=== PATIENT | male | born 1975 ===

== ENCOUNTER → 2024-03-09 10:46 | Outpatient (REF) | payer OTHER, SELFPAY ==
--- NOTE | 2024-03-09 12:21 | PN.DE ---
Diabetes Education
- -
03/09/2024 Diabetes Education hold over
Patient referred by Dr. Tommy Holden for education. Patient with PMH CABG x 4 in 2020,HLD, paroxysmal afib,GERD, HTN, moderate persistent asthma. New onset type 2 diabetes. A1C 13.3%.
Patient and attended visit.
Patient states his doctor gave him a meter and ordered metformin 500mg once daily but to wait for education to start.
Provided and instructed on 2000 calorie diet using meal plan and CHO counting booklet. Reviewed food label and instructed on portions per meal and portion sizes. Encouraged to weigh and measure food .
Patient to start metformin with dinner tonight then every night at dinner.
Patient was given the Contour Next meter; instructed on steps for testing, lancing device at 2. Good return demonstration. Patient to test BID in pattern provided and email results in one week.
Patient and with many questions, all answered. He would like to pursue CGM, will check with insurance to see what the process is. Will follow and assist.
Encouraged patient to attend diabetes classes in fall, they expressed interest in the evening class.
== END ==
LOC: DES 10:46
PROVIDERS: ATTENDING PHYSICIAN Family Medicine
DX: E11.65 Type 2 diabetes mellitus with hyperglycemia (principal)
CPT/HCPCS: 99078

== ENCOUNTER 2024-09-05 07:59 | Emergency (ER) | payer OTHER, SELFPAY ==
[2024-09-05 08:01] VITALS: BP 155/78
[2024-09-05 08:18] VITALS: BP 147/88
[2024-09-05 08:19] VITALS: BMI 31.2
--- NOTE | 2024-09-05 08:37 | ED.GENMED ---
History of Present Illness
General
Chief Complaint: Dizziness
Time Seen by Provider: 09/05/24 08:37
History of Present Illness
History of Present Illness:
TIME OF INITIAL ENCOUNTER: 8:38 AM
HPI: Patient presents with dizziness. He felt fine when he woke up this morning, but when he got up to walk around he felt dizzy. This worsened when he bent over/change head position. He currently has no significant symptoms at rest sitting in
the stretcher. He does have significant comorbidities.
EXAM:
GENERAL: Well appearing in no distress
HEENT: Moist oral mucosa, positive [place]-Hallpike maneuver
CARDIOVASCULAR: No murmurs, normal heart rate, regular rhythm, No chest wall tenderness
PULMONARY: No respiratory distress, breath sounds are clear and equal
ABDOMEN: Soft with no peritoneal signs, no tenderness
NEUROLOGIC: Excellent strength all extremities, no coordination deficits, normal [id number]-[id number] testing, no field cuts, no sensory deficits
PSYCHIATRIC: Appropriate mental status, normal insight and judgement
EXTREMITIES: Nontender, no edema, moves all extremities equally
SKIN: No rash, no lesions
NUMBER AND COMPLEXITY OF PROBLEMS ADDRESSED AT THE ENCOUNTER
� Chronic conditions affecting care: CAD/CABG, diabetes, hyperlipidemia, has had a 'stroke in my eye' after metoprolol use after bypass
� Acute Exacerbation and/or Progression of Chronic Illness: This is an acute problem
� Differential Diagnosis includes: BPPV, very low suspicion for CVA as the patient is a stroke scale of 0 currently
AMOUNT AND/OR COMPLEXITY OF DATA TO BE REVIEWED AND ANALYZED
� I performed an independent evaluation of and my interpretation is:
EKG: Sinus 63, normal axis, nonspecific ST abnormality, inferior Q waves with no old to compare
CT: The CAT scan of the brain showed no acute abnormality
X-rays:
Laboratory Studies: CBC and chemistries unremarkable
Other:
� Review of other/old records: No old records available for review in [facility]
� Clinical information was obtained by an independent historian: I spoke to and son at bedside
� Prescriptions/Medications Considered but not given:
� Further testing considered but not performed: No clear indication for MRI at this time as he has a normal neurologic examination
RISK OF COMPLICATIONS AND/OR MORBIDITY OR MORTALITY OF PATIENT MANAGEMENT
� Social determinants of health affecting care: Lives at home
� Discussion with other providers: I have asked PT for consult 8:50 AM, however per patient at 10:30 AM, patient states that PT did not note any clear indication to perform any maneuver.
� Escalation of care including admission/observation vs risk of discharge considered: The patient has an NIHSS of 0 and a positive [place]-Hallpike maneuver. The patient does have comorbidities as well as prior small stroke
therefore CT imaging also obtained.
ANY OTHER UPDATES:
10:30 AM: The patient is very well-appearing with only minimal symptoms. He has no symptoms at rest in the stretcher. Workup is unremarkable.
Phy Exam
Physical Exam
Physical Exam:
See HPI
Course
Orders/Labs/Results
Orders:
Orders
09/05/24 08:05
Electrocardiogram (*1) Urgent
Reason for Study: Vertigo / Dizzy
EKG- Treatment ONCE
09/05/24 08:37
CMP [Comprehensive Metabolic Panel] Urgent
Complete Blood Count/With Diff Urgent
09/05/24 08:47
CT Head W/o Iv Contrast Urgent
Comment:
Reason For Exam: dizziness
09/05/24 08:48
PT Consult [Pt Eval And Treat] Urgent
Treatment: eval treat / Hina?
Activity Level: Out of Bed- Ad Daria
Abnormal Lab Results
09/05/24
08:37
Absolute Lymphs (auto) 1.0 L 10^3/uL
(1.2-3.4)
Lymphocytes % 17.5 L %
(20.5-51.1)
Glucose 122 H mg/dl
(70-99)
09/05/24 08:37
09/05/24 08:37
Vital Signs
Initial and Last Documented VS:
Initial Vital Signs
Temp Pulse Resp BP Pulse Ox
36.6 C 70 18 155/78 98
09/05/24 08:01 09/05/24 08:01 09/05/24 08:01 09/05/24 08:01 09/05/24 08:01
Last Documented Vital Signs
Temp Pulse Resp BP Pulse Ox
36.6 C 58 15 148/94 99
09/05/24 08:01 09/05/24 10:15 09/05/24 10:15 09/05/24 10:01 09/05/24 10:15
*Critical Care Note
Total Time (30-74mins, 75-104mins- exclusive of procedures): Not Applicable
ED Attending Note
-
Portions of this chart may have been created with voice recognition software.� Occasional wrong word or��sound alike� substitutions may have occurred due to the inherent limitations of voice recognition software.
Discharge Plan
Departure
Patient Disposition: Home (Routine Discharge)
Date of Disposition: 09/05/24
Time of Disposition: 10:30
Patient with high blood pressure during this ER visit?: Yes
Discharge Problem:
Dizziness
Instructions: Dizziness
Prescriptions:
New
meclizine 25 mg tablet
25 mg PO BID PRN (Reason: dizziness) Qty: 30 0RF
No Action
(DME) lancets [Color Lancets] 21 gauge Misc
Qty: 100 1RF
Rx Instructions:
Test BID in pattern provided As Directed
E11.65
Toya
1 tab PO DAILY
atorvastatin 20 mg Tablet
20 mg PO HS
pantoprazole 40 mg Tablet,Delayed Release (Dr/Ec)
40 mg PO DAILY
losartan 25 mg Tablet
25 mg PO DAILY
aspirin [Aspirin Child] 81 mg Tablet,Chewable
81 mg PO DAILY
montelukast 10 mg Tablet
10 mg PO DAILY
metformin
1 tab PO DAILY
methylphenidate HCl
1 tab PO DAILY
venlafaxine
1 tab PO DAILY
Referrals:
Tommy Holden, [Family Provider] -
Activity Restrictions/Additional Instructions:
CAT scan of the brain is unremarkable. EKG shows a normal sinus rhythm. Basic blood work is normal. Based on physical examination, there is no sign of stroke. Return here if worse or other concerns. I sent a prescription for meclizine which can
sometimes help with dizziness. Follow-up with your primary care doctor.
Interventions
Interventions:
*Risk Screen - Suicide Last Done: 09/05/24 08:01
*General Assessment Last Done: 09/05/24 08:01
*Neglect/Abuse Screening Last Done: 09/05/24 08:01
ED- Fall Risk Assessment Last Done: 09/05/24 08:36
ED- Neurological Assessment Last Done: 09/05/24 08:36
ED- Cardiac Assessment Last Done: 09/05/24 08:36
Discharge Date and Time
Print Language: BURMESE
[2024-09-05 08:50] LABS: % Basophils 1.3 % (0-2); % Eosinophils 3.2 % (0-6); % Immature Granulocytes 0.4 % (0-0.5); % Lymphocytes 17.5 % (20.5-51.1); % Monocytes 6.4 % (1.7-9.3); % Neutrophils 71.2 % (42.2-75.2); Absolute Basophils 0.1 10^3/uL (0-0.2); Absolute Eosinophils 0.2 10^3/uL (0-0.7); Absolute Monocytes 0.4 10^3/uL (0.1-0.6); Hematocrit 44.4 % (39.0-52.0); Hemoglobin 14.8 g/dL (13.0-18.0); Mean Corp Hgb Conc. 33.3 g/dL (33.0-37.0); Mean Corpuscular Hgb 29.1 pg (27.0-31.0); Mean Corpuscular Volume 87.4 fL (80.0-94.0); Mean Platelet Volume 9.9 fL (7.4-10.4); Nucleated Red Blood Cells % 0 % (-); Platelet Count 266 10^3/uL (130-400); Red Blood Cell Count 5.08 10^6/uL (4.70-6.10); Red Cell Dist. Width 12.3 % (11.5-14.5); White Blood Cell Count 5.6 10^3/uL (4.8-10.8)
[2024-09-05 09:00] VITALS: BP 143/84
[2024-09-05 09:14] LABS: ALT (SGPT) 47 U/L (0-50); AST (SGOT) 33 U/L (17-59); Albumin 4.4 g/dl (3.5-5.0); Alkaline Phosphatase 82 U/L (38-126); Blood Urea Nitrogen 17 mg/dl (9-20); Calcium 9.3 mg/dl (8.4-10.2); Carbon Dioxide 30 mmol/L (22-30); Chloride 101 mmol/L (98-107); Estimated Creatinine Clearance > 125 ml/min; Glucose 122 mg/dl (70-99); Potassium 4.4 mmol/L (3.5-5.1); Sodium 138 mmol/L (135-145); Total Bilirubin 1.2 mg/dl (0.2-1.3); Total Protein 6.7 g/dl (6.3-8.2); eGFR > 60.00
[2024-09-05 09:21] VITALS: BP 143/84; BP 146/104
[2024-09-05 10:01] VITALS: BP 148/94
== END 2024-09-05 10:45 | disposition home or self-care (01) ==
LOC: EMR 07:59
PROVIDERS: Emergency Medicine; EMERGENCY PHYSICIAN Emergency Medicine; FAMILY PHYSICIAN Family Medicine
DX: R42 Dizziness and giddiness (principal)
CPT/HCPCS: 99284; 70450; 80053; 85025; 93005